=== PATIENT | male | born 1960 | race Caucasian/White ===

== ENCOUNTER 2017-06-30 12:36 | Emergency (ER) | payer SELFPAY ==
[~2017-06-30] VITALS: Ht 172.7 cm; Wt 88.0 kg
[2017-06-30 12:40] VITALS: BP 124/79
[2017-06-30 13:19] LABS: HEMATOCRIT 43.8 % (39.2-51.8); HEMOGLOBIN 13.9 g/dL (13.7-18.0); WHITE BLOOD COUNT 16.6 x10^3/uL (3.4-10)
[2017-06-30 13:30] LABS: BLOOD UREA NITROGEN 16 mg/dL (7-18)
[2017-06-30] MEDS ORDERED: SILVER SULF. CRM 1%, 50GM TP ONE (13:30)
[2017-06-30] MEDS ORDERED: SILVER SULF. CRM 1% , 25GM ONE (13:38)
[2017-06-30 13:41] LABS: ANISOCYTOSIS 1+; POIKILOCYTOSIS 1+; POLYCHROMASIA 1+
[2017-06-30 13:42] LABS: MICROCYTOSIS 1+; OVALOCYTES 1+
== END 2017-06-30 14:26 | disposition home or self-care (01) ==
LOC: ED 14:20
DX: L89.93 Pressure ulcer of unspecified site, stage 3 (principal); G89.29 Other chronic pain; I10 Essential (primary) hypertension; E78.5 Hyperlipidemia, unspecified; I73.9 Peripheral vascular disease, unspecified; J44.9 Chronic obstructive pulmonary disease, unspecified
CPT/HCPCS: 36415; 80048; 82040; 85025; 99284

== ENCOUNTER 2017-07-28 12:43 | Inpatient (IN) | payer MEDICARE, OTHER ==
[~2017-07-28] VITALS: Ht 177.8 cm; Wt 93.6 kg
[2017-07-28] MEDS ORDERED: SODIUM CHLORIDE FLUSH 10ML SYR IVF ONE (13:00)
[2017-07-28] MEDS ORDERED: ALBUTEROL/IPRATROPIUM 2.5MG/0.5MG, 3 ML NPPB SCH (13:00)
[2017-07-28] MEDS ORDERED: ALBUTEROL/IPRATROPIUM 2.5MG/0.5MG, 3 ML ONE ×2 (13:26→13:27)
[2017-07-28] MEDS ORDERED: morphine SULFATE 10 MG/ML, 1ML IVPush ONE (13:30)
[2017-07-28] MEDS ORDERED: MORP-52 PO (13:37)
[2017-07-28] MEDS ORDERED: FURO20TA3 PO (13:37)
[2017-07-28] MEDS ORDERED: ASPI-496 PO (13:37)
[2017-07-28] MEDS ORDERED: OMEP-110 PO (13:37)
[2017-07-28] MEDS ORDERED: ZOLP10TA PO (13:37)
[2017-07-28] MEDS ORDERED: TEST200V IM (13:37)
[2017-07-28] MEDS ORDERED: TRAZ50TA18 PO (13:37)
[2017-07-28] MEDS ORDERED: LEVO75TA5 PO (13:37)
[2017-07-28] MEDS ORDERED: HYDR10TA PO (13:37)
[2017-07-28] MEDS ORDERED: FLUT1DIS5 IH (13:37)
[2017-07-28] MEDS ORDERED: AMPH30TA2 PO (13:37)
[2017-07-28] MEDS ORDERED: LISI40TA PO (13:37)
[2017-07-28] MEDS ORDERED: TIOT18CA INH (13:37)
[2017-07-28] MEDS ORDERED: AMLO10TA2 PO (13:37)
[2017-07-28] MEDS ORDERED: ATOR40TA PO (13:37)
[2017-07-28] MEDS ORDERED: ALBU8.5H8 INH (13:37)
[2017-07-28] MEDS ORDERED: OXYC-307 PO (13:37)
[2017-07-28] MEDS ORDERED: morphine SULFATE 10 MG/ML, 1ML ONE ×2 (13:41→15:01)
[2017-07-28 13:53] LABS: HEMATOCRIT 41.4 % (39.2-51.8); HEMOGLOBIN 13.1 g/dL (13.7-18.0); WHITE BLOOD COUNT 12.4 x10^3/uL (3.4-10)
[2017-07-28 14:08] LABS: ASPARTATE AMINO TRANSFERASE 25 U/L (15-37); BLOOD UREA NITROGEN 17 mg/dL (7-18)
[2017-07-28 14:15] LABS: IS PT STATUS REG ER OR PRE ER? YES
[2017-07-28] MEDS ORDERED: AZITHROMYCIN 500 MG in SODIUM CHLORIDE 0.9% 250 ML IV ONE (14:30)
[2017-07-28] MEDS ORDERED: CEFTRIAXONE PMX 2GM/50ML 50 ML IV ONE (14:30)
[2017-07-28] MEDS ORDERED: CEFTRIAXONE PMX 2GM/50ML 50 ML ONE (14:37)
[2017-07-28] MEDS ORDERED: HYDROmorphone 1 MG/ML, 1ML ONE (15:12)
[2017-07-28] MEDS: HYDROmorphone 2 MG/ML, 1ML IVPush PRN ×2 (15:15→20:29)
[2017-07-28 18:12] VITALS: BP 115/86
[2017-07-28 19:25] VITALS: BP 100/64
[2017-07-28] MEDS ORDERED: ALBUTEROL SULFATE 2.5 MG/3 ML NEB PRN (19:30)
[2017-07-28] MEDS ORDERED: ENALAPRILAT 1.25 MG/ML, 2ML IVPush PRN (19:30)
[2017-07-28] MEDS ORDERED: POLYETHYLENE GLYCOL 17 GM PACKET PO PRN (19:30)
[2017-07-28] MEDS ORDERED: ZOLPIDEM 10MG TABLET PO PRN (19:30)
[2017-07-28] MEDS ORDERED: ONDANSETRON ODT 4 MG PO PRN (19:30)
[2017-07-28] MEDS ORDERED: ACETAMINOPHEN 325 MG TABLET PO PRN (19:30)
[2017-07-28 20:27] LABS: IS PT STATUS REG ER OR PRE ER? NO
[2017-07-28] MEDS: ENOXAPARIN 40 MG/0.4 ML SQ SCH (20:50)
[2017-07-28] MEDS: NICOTINE 7 MG/24 HR PATCH.TD24 TD SCH (20:50)
[2017-07-28] MEDS: OXYcodone/APAP 10/325MG TABLET PO SCH (20:50)
[2017-07-28] MEDS: FUROSEMIDE 40 MG/4 ML IV SCH (20:50)
[2017-07-28] MEDS: PIPERACILLIN/TAZO/PMX 3.375GM 50 ML IV SCH (20:50)
[2017-07-28] MEDS: ATORVASTATIN 40 MG TABLET PO SCH (20:51)
[2017-07-28 21:11] LABS: POTASSIUM,URINE RANDOM 11 mmol/L
[2017-07-29] MEDS: OXYcodone/APAP 10/325MG TABLET PO SCH ×2 (01:04→07:55)
[2017-07-29] MEDS: PIPERACILLIN/TAZO/PMX 3.375GM 50 ML IV SCH ×4 (01:04→19:54)
[2017-07-29 01:06] VITALS: BP 91/58
[2017-07-29 01:50] LABS: IS PT STATUS REG ER OR PRE ER? NO
[2017-07-29 06:15] LABS: BLOOD UREA NITROGEN 17 mg/dL (7-18)
[2017-07-29 06:16] LABS: HEMATOCRIT 39.1 % (39.2-51.8); HEMOGLOBIN 12.3 g/dL (13.7-18.0); WHITE BLOOD COUNT 9.9 x10^3/uL (3.4-10)
[2017-07-29 06:27] LABS: ASPARTATE AMINO TRANSFERASE 21 U/L (15-37)
[2017-07-29 08:25] VITALS: BP 125/77
[2017-07-29] MEDS: FUROSEMIDE 40 MG/4 ML IV SCH ×2 (08:27→17:09)
[2017-07-29] MEDS ORDERED: morphine SULFATE 10 MG/ML, 1ML IVPush ONE (08:30)
[2017-07-29] MEDS ORDERED: HYDROCORTISONE 10 MG TABLET PO SCH (09:00)
[2017-07-29] MEDS: IPRATROPIUM 0.5 MG/2.5 ML INHA NEB SCH ×3 (09:00→20:20)
[2017-07-29] MEDS: OMEPRAZOLE 20 MG CAPSULE.DR PO SCH (10:21)
[2017-07-29] MEDS: AMLODIPINE 5 MG TABLET PO SCH (10:21)
[2017-07-29] MEDS: LISINOPRIL 20 MG TABLET PO SCH (10:21)
[2017-07-29] MEDS: ASPIRIN 81 MG TABLET EC PO SCH (10:21)
[2017-07-29] MEDS: LEVOTHYROXINE 75 MCG TABLET PO SCH (10:22)
[2017-07-29] MEDS: morphine SULFATE ORAL.CONC 20 MG/ML PO SCH ×2 (10:44→19:55)
[2017-07-29] MEDS: FLUTICASONE/VILANTEROL 200-25MCG/INH INH SCH (12:54)
[2017-07-29] MEDS: OXYcodone/APAP 10/325MG TABLET PO PRN ×3 (12:54→20:55)
[2017-07-29] MEDS ORDERED: HEPARIN 5,000 UNITS/ML, 1ML SQ SCH (13:00)
[2017-07-29 14:00] VITALS: BP 102/63
[2017-07-29 19:00] VITALS: BP 92/54
[2017-07-29] MEDS: ENOXAPARIN 40 MG/0.4 ML SQ SCH (19:54)
[2017-07-29] MEDS: ATORVASTATIN 40 MG TABLET PO SCH (19:54)
[2017-07-29] MEDS: NICOTINE 7 MG/24 HR PATCH.TD24 TD SCH (19:55)
[2017-07-29] MEDS: HYDROCORTISONE 20 MG TABLET PO SCH (20:55)
[2017-07-29] MEDS: morphine SULFATE 10 MG/ML, 1ML IVPush PRN (22:36)
[2017-07-30 00:50] VITALS: BP 109/69
[2017-07-30] MEDS: PIPERACILLIN/TAZO/PMX 3.375GM 50 ML IV SCH ×4 (01:23→20:13)
[2017-07-30] MEDS: OXYcodone/APAP 10/325MG TABLET PO PRN ×4 (01:23→20:14)
[2017-07-30] MEDS: IPRATROPIUM 0.5 MG/2.5 ML INHA NEB SCH ×4 (03:00→18:40)
[2017-07-30] MEDS ORDERED: TAMS0.4C2 PO (03:31)
[2017-07-30] MEDS: morphine SULFATE 10 MG/ML, 1ML IVPush PRN ×4 (04:13→23:24)
[2017-07-30 05:55] LABS: WHITE BLOOD COUNT 11.7 x10^3/uL (3.4-10)
[2017-07-30 05:56] LABS: HEMATOCRIT 40.5 % (39.2-51.8); HEMOGLOBIN 12.8 g/dL (13.7-18.0)
[2017-07-30 06:08] LABS: BLOOD UREA NITROGEN 17 mg/dL (7-18)
[2017-07-30 07:37] LABS: HEMATOCRIT 41.2 % (39.2-51.8); HEMOGLOBIN 12.9 g/dL (13.7-18.0); WHITE BLOOD COUNT 10.3 x10^3/uL (3.4-10)
[2017-07-30 08:30] VITALS: BP 123/74
[2017-07-30] MEDS: FLUTICASONE/VILANTEROL 200-25MCG/INH INH SCH (08:31)
[2017-07-30] MEDS: AMLODIPINE 5 MG TABLET PO SCH (08:32)
[2017-07-30] MEDS: HYDROCORTISONE 20 MG TABLET PO SCH ×2 (08:32→16:49)
[2017-07-30] MEDS: FUROSEMIDE 40 MG/4 ML IV SCH ×2 (08:33→16:49)
[2017-07-30] MEDS: LISINOPRIL 20 MG TABLET PO SCH (08:33)
[2017-07-30] MEDS: OMEPRAZOLE 20 MG CAPSULE.DR PO SCH (08:33)
[2017-07-30] MEDS: ASPIRIN 81 MG TABLET EC PO SCH (08:34)
[2017-07-30] MEDS: morphine SULFATE ORAL.CONC 20 MG/ML PO SCH ×2 (09:36→21:41)
[2017-07-30] MEDS: LEVOTHYROXINE 75 MCG TABLET PO SCH (09:40)
[2017-07-30 12:40] VITALS: BP 96/66
[2017-07-30 18:51] VITALS: BP 105/70
[2017-07-30] MEDS: ENOXAPARIN 40 MG/0.4 ML SQ SCH (20:13)
[2017-07-30] MEDS: ATORVASTATIN 40 MG TABLET PO SCH (20:14)
[2017-07-30] MEDS: NICOTINE 7 MG/24 HR PATCH.TD24 TD SCH (20:14)
[2017-07-31] MEDS: OXYcodone/APAP 10/325MG TABLET PO PRN ×3 (01:26→23:23)
[2017-07-31] MEDS: PIPERACILLIN/TAZO/PMX 3.375GM 50 ML IV SCH ×4 (01:26→19:52)
[2017-07-31 01:30] VITALS: BP 112/71
[2017-07-31] MEDS: IPRATROPIUM 0.5 MG/2.5 ML INHA NEB SCH ×3 (03:00→19:43)
[2017-07-31 05:58] LABS: HEMATOCRIT 42.7 % (39.2-51.8); HEMOGLOBIN 13.5 g/dL (13.7-18.0); WHITE BLOOD COUNT 10.2 x10^3/uL (3.4-10)
[2017-07-31] MEDS: morphine SULFATE 10 MG/ML, 1ML IVPush PRN ×3 (06:00→18:56)
[2017-07-31 06:11] LABS: BLOOD UREA NITROGEN 17 mg/dL (7-18)
[2017-07-31 07:28] VITALS: BP 114/74
[2017-07-31] MEDS: NICOTINE 21 MG/24 HR PATCH.TD24 TD SCH (09:00)
[2017-07-31] MEDS: FLUTICASONE/VILANTEROL 200-25MCG/INH INH SCH (09:01)
[2017-07-31] MEDS: morphine SULFATE ORAL.CONC 20 MG/ML PO SCH ×2 (09:01→19:53)
[2017-07-31] MEDS: LISINOPRIL 20 MG TABLET PO SCH (09:02)
[2017-07-31] MEDS: LEVOTHYROXINE 75 MCG TABLET PO SCH (09:02)
[2017-07-31] MEDS: ASPIRIN 81 MG TABLET EC PO SCH (09:02)
[2017-07-31] MEDS: HYDROCORTISONE 20 MG TABLET PO SCH ×2 (09:02→19:52)
[2017-07-31] MEDS: FUROSEMIDE 40 MG/4 ML IV SCH ×2 (09:02→18:15)
[2017-07-31] MEDS: OMEPRAZOLE 20 MG CAPSULE.DR PO SCH (09:03)
[2017-07-31 14:34] VITALS: BP 102/68
[2017-07-31 19:01] VITALS: BP 109/69
[2017-07-31] MEDS: ATORVASTATIN 40 MG TABLET PO SCH (19:52)
[2017-07-31] MEDS: ENOXAPARIN 40 MG/0.4 ML SQ SCH (19:52)
[2017-08-01 01:13] VITALS: BP 119/79
[2017-08-01] MEDS: PIPERACILLIN/TAZO/PMX 3.375GM 50 ML IV SCH ×2 (02:02→08:29)
[2017-08-01] MEDS: IPRATROPIUM 0.5 MG/2.5 ML INHA NEB SCH (03:00)
[2017-08-01] MEDS: OXYcodone/APAP 10/325MG TABLET PO PRN ×2 (03:56→10:52)
[2017-08-01 05:33] LABS: BLOOD UREA NITROGEN 17 mg/dL (7-18); C-REACTIVE PROTEIN, QUANT 0.06 mg/dL (0.02-0.49)
[2017-08-01] MEDS ORDERED: IPRATROPIUM 0.5 MG/2.5 ML INHA NPPB SCH (06:00)
[2017-08-01 06:14] LABS: HEMATOCRIT 41.8 % (39.2-51.8); HEMOGLOBIN 13.2 g/dL (13.7-18.0); WHITE BLOOD COUNT 9.5 x10^3/uL (3.4-10)
[2017-08-01 07:08] LABS: DIFF TOTAL CELLS COUNTED 100 CELL DIFF
[2017-08-01 07:10] LABS: ANISOCYTOSIS 1+; VERIFY COUNTS? YES
[2017-08-01 07:11] LABS: ACANTHOCYTES 1+; ECHINOCYTES 1+; HYPOCHROMIA 1+; OVALOCYTES 1+; POIKILOCYTOSIS 1+
[2017-08-01] MEDS: ASPIRIN 81 MG TABLET EC PO SCH (08:28)
[2017-08-01] MEDS: LEVOTHYROXINE 75 MCG TABLET PO SCH (08:28)
[2017-08-01] MEDS: FUROSEMIDE 40 MG/4 ML IV SCH (08:29)
[2017-08-01] MEDS: HYDROCORTISONE 20 MG TABLET PO SCH (08:29)
[2017-08-01] MEDS: OMEPRAZOLE 20 MG CAPSULE.DR PO SCH (08:29)
[2017-08-01] MEDS: LISINOPRIL 20 MG TABLET PO SCH (08:29)
[2017-08-01] MEDS: FLUTICASONE/VILANTEROL 200-25MCG/INH INH SCH (08:29)
[2017-08-01] MEDS: morphine SULFATE ORAL.CONC 20 MG/ML PO SCH (08:29)
[2017-08-01] MEDS: NICOTINE 21 MG/24 HR PATCH.TD24 TD SCH (08:30)
[2017-08-01] MEDS: morphine SULFATE 10 MG/ML, 1ML IVPush PRN (08:41)
[2017-08-01] MEDS ORDERED: FURO20TA3 PO (08:54)
[2017-08-01] MEDS ORDERED: AMOX1TAB64 PO (08:54)
[2017-08-01 10:01] VITALS: BP 98/68
[2017-08-01] MEDS ORDERED: PNEUMOCOCCAL 23 VACCINE IM-VACC ONE (11:00)
[2017-08-01] MEDS ORDERED: FLU VACC QS2017-18 (36MOS+) UP/PF 0.5 ML IM-VACC ONE (11:30)
== END 2017-08-01 11:55 | disposition home or self-care (01) | DRG 177 ==
LOC: ED 14:40 → 5SO 14:42 → ED 15:23 → DCLOUNGE 08-01 11:23
PROVIDERS: ADMIT Internal Medicine; ATTEND Internal Medicine
DX: J69.0 Pneumonitis due to inhalation of food and vomit (principal); J96.21 Acute and chronic respiratory failure with hypoxia; Z93.0 Tracheostomy status; I27.20 Pulmonary hypertension, unspecified; I50.9 Heart failure, unspecified; E87.1 Hypo-osmolality and hyponatremia; I11.0 Hypertensive heart disease with heart failure; L03.115 Cellulitis of right lower limb; J44.0 Chronic obstructive pulmonary disease with (acute) lower respiratory infection; J44.1 Chronic obstructive pulmonary disease with (acute) exacerbation; L03.116 Cellulitis of left lower limb; R18.8 Other ascites; B19.20 Unspecified viral hepatitis C without hepatic coma; F32.9 Major depressive disorder, single episode, unspecified; M54.9 Dorsalgia, unspecified; E03.9 Hypothyroidism, unspecified; G47.33 Obstructive sleep apnea (adult) (pediatric); F17.210 Nicotine dependence, cigarettes, uncomplicated; G89.29 Other chronic pain; I44.5 Left posterior fascicular block; I73.9 Peripheral vascular disease, unspecified; Z80.0 Family history of malignant neoplasm of digestive organs; Z83.3 Family history of diabetes mellitus; Z91.19 Patient's noncompliance with other medical treatment and regimen; Z92.3 Personal history of irradiation; Z93.1 Gastrostomy status
CPT/HCPCS: 36415; 71010; 71020; 74230; 80048; 80053; 81003; 82436; 83735; 83880; 83930; 83935; 84100; 84133; 84300; 84439; 84443; 84484; 85025; 86140; 87040; 90686; 90732; 93005; 93306; 93970; 94640; 96365; 96375; J0456; J0696; J1170; J1650; J1940; J2543; J7613; J7644; J2270; J7050

== ENCOUNTER → 2017-08-05 | Outpatient (CLI) | payer MEDICARE ==
[~2017-08-05] MED LIST: ALBU8.5H8 INH; AMLO10TA2 PO; AMOX1TAB64 PO; AMPH30TA2 PO; ASPI-496 PO; ATOR40TA PO; FLUT1DIS5 IH; FURO20TA3 PO; HYDR10TA PO; LEVO75TA5 PO; LISI40TA PO; MORP-52 PO; OMEP-110 PO; OXYC-307 PO; TAMS0.4C2 PO; TEST200V IM; TIOT18CA INH; TRAZ50TA18 PO; ZOLP10TA PO
[2017-08-05 12:41] LABS: HEMATOCRIT 45.7 % (39.2-51.8); HEMOGLOBIN 14.3 g/dL (13.7-18.0); WHITE BLOOD COUNT 14.5 x10^3/uL (3.4-10)
[2017-08-05 12:50] LABS: BLOOD UREA NITROGEN 19 mg/dL (7-18)
[2017-08-05 13:01] LABS: ASPARTATE AMINO TRANSFERASE 24 U/L (15-37)
[2017-08-05 13:19] LABS: ANISOCYTOSIS 1+; OVALOCYTES 1+; POIKILOCYTOSIS 1+; POLYCHROMASIA 1+; SPHEROCYTES 1+
[2017-08-05 13:20] LABS: SCHISTOCYTES 1+
[2017-08-05 13:21] LABS: MICROCYTOSIS 1+
[2017-08-05 13:24] LABS: ECHINOCYTES 1+
[2017-08-07 03:07] LABS: TESTOSTERONE FREE DIRECT 5.5 pg/mL (7.2-24.0)
== END | disposition home or self-care (01) ==
LOC: CFH 10:53
PROVIDERS: ATTEND Registered Nurse
DX: E29.1 Testicular hypofunction (principal); F32.9 Major depressive disorder, single episode, unspecified; F90.9 Attention-deficit hyperactivity disorder, unspecified type; F52.21 Male erectile disorder; E55.9 Vitamin D deficiency, unspecified; R79.89 Other specified abnormal findings of blood chemistry
CPT/HCPCS: 36415; 80053; 80061; 82306; 84402; 84403; 84436; 84443; 84481; 85025

== ENCOUNTER 2017-09-19 12:07 | Inpatient (IN) | payer MEDICARE ==
[~2017-09-19] VITALS: Ht 175.3 cm; Wt 85.5 kg
[2017-09-19] MEDS ORDERED: SODIUM CHLORIDE 0.9% 1,000ML IVBOLUS ONE ×4 (12:30→15:30)
[2017-09-19] MEDS ORDERED: ASPIRIN 81 MG TABLET CHEW PO ONE (12:30)
[2017-09-19 12:55] LABS: HEMATOCRIT 46.3 % (39.2-51.8); HEMOGLOBIN 14.9 g/dL (13.7-18.0); WHITE BLOOD COUNT 12.6 x10^3/uL (3.4-10)
[2017-09-19] MEDS ORDERED: ALBUTEROL/IPRATROPIUM 2.5MG/0.5MG, 3 ML NPPB ONE (13:00)
[2017-09-19 13:07] LABS: ASPARTATE AMINO TRANSFERASE 21 U/L (15-37); BLOOD UREA NITROGEN 16 mg/dL (7-18)
[2017-09-19 13:12] LABS: IS PT STATUS REG ER OR PRE ER? YES
[2017-09-19] MEDS ORDERED: ASPIRIN 81 MG TABLET CHEW ONE (13:19)
[2017-09-19] MEDS ORDERED: ALBUTEROL/IPRATROPIUM 2.5MG/0.5MG, 3 ML ONE (13:38)
[2017-09-19] MEDS ORDERED: PIPERACILLIN/TAZO/PMX 3.375GM 50 ML IV ONE (14:00)
[2017-09-19] MEDS ORDERED: PIPERACILLIN/TAZO/PMX 3.375GM 50 ML ONE (14:20)
[2017-09-19] MEDS ORDERED: DOCUSATE 100 MG CAPSULE PO PRN (16:30)
[2017-09-19] MEDS ORDERED: POLYETHYLENE GLYCOL 17 GM PACKET PO PRN (16:30)
[2017-09-19] MEDS ORDERED: TRAZODONE 50MG TABLET PO PRN (16:30)
[2017-09-19] MEDS ORDERED: ALBUTEROL HFA 90 MCG/SPRAY INH PRN (16:30)
[2017-09-19] MEDS ORDERED: VANCOMYCIN PER PHARMACY MC PRN (16:30)
[2017-09-19] MEDS ORDERED: ACETAMINOPHEN 325 MG TABLET PO PRN (16:30)
[2017-09-19] MEDS ORDERED: LABETALOL 5MG/ML, 20ML IVPush PRN (16:30)
[2017-09-19] MEDS ORDERED: HYDROcodone/APAP 5/325 TABLET PO PRN (16:30)
[2017-09-19] MEDS ORDERED: PIPERACILLIN/TAZO/PMX 3.375GM 50 ML IV SCH (16:30)
[2017-09-19] MEDS ORDERED: BISACODYL 10 MG SUPP PR PRN (16:30)
[2017-09-19] MEDS: HEPARIN 5,000 UNITS/ML, 1ML SQ SCH (18:00)
[2017-09-19] MEDS: OXYcodone/APAP 10/325MG TABLET PO SCH ×2 (18:00→23:05)
[2017-09-19] MEDS: NS + 20MEQ KCL 1,000 ML IV SCH (18:01)
[2017-09-19] MEDS: morphine SULFATE 10 MG/ML, 1ML IVPush PRN ×2 (18:01→22:24)
[2017-09-19] MEDS ORDERED: PHARMACOKINETIC MONITORING MC PRN (21:30)
[2017-09-19] MEDS ORDERED: PHARMACOKINETIC CONSULTATION MC ONE (21:30)
[2017-09-19] MEDS: GUAIFENESIN ER 600 MG TABLET PO SCH (22:24)
[2017-09-19] MEDS: ATORVASTATIN 40 MG TABLET PO SCH (22:24)
[2017-09-19] MEDS: PIPERACILLIN/TAZO/PMX 3.375GM 50 ML IV SCH (22:24)
[2017-09-19] MEDS: VANCOMYCIN 1,800 MG in SODIUM CHLORIDE 0.9% 250 ML IV SCH ×2 (22:43→23:05)
[2017-09-19 23:00] VITALS: BP 111/66
[2017-09-20 01:09] VITALS: BP 135/83
[2017-09-20] MEDS: morphine SULFATE 10 MG/ML, 1ML IVPush PRN ×7 (01:25→23:53)
[2017-09-20] MEDS: OXYcodone/APAP 10/325MG TABLET PO SCH (04:23)
[2017-09-20] MEDS: PIPERACILLIN/TAZO/PMX 3.375GM 50 ML IV SCH ×4 (04:23→22:49)
[2017-09-20] MEDS: HEPARIN 5,000 UNITS/ML, 1ML SQ SCH ×3 (04:23→20:49)
[2017-09-20 05:11] LABS: HEMATOCRIT 42.9 % (39.2-51.8); HEMOGLOBIN 13.7 g/dL (13.7-18.0); WHITE BLOOD COUNT 13.1 x10^3/uL (3.4-10)
[2017-09-20 05:23] LABS: BLOOD UREA NITROGEN 20 mg/dL (7-18)
[2017-09-20 07:28] VITALS: BP 115/76
[2017-09-20] MEDS: FLUTICASONE/VILANTEROL 200-25MCG/INH INH SCH (09:00)
[2017-09-20] MEDS: GUAIFENESIN ER 600 MG TABLET PO SCH ×2 (09:00→20:49)
[2017-09-20] MEDS: ASPIRIN 81 MG TABLET EC PO SCH (09:00)
[2017-09-20] MEDS: LISINOPRIL 20 MG TABLET PO SCH (09:00)
[2017-09-20] MEDS ORDERED: LEVOTHYROXINE 75 MCG TABLET PO SCH (09:00)
[2017-09-20] MEDS: IPRATROPIUM 0.5 MG/2.5 ML INHA NPPB SCH ×3 (09:00→21:00)
[2017-09-20] MEDS: HYDROCORTISONE 10 MG TABLET PO SCH (09:00)
[2017-09-20] MEDS: TAMSULOSIN 0.4 MG CAP.ER.24H PO SCH (09:00)
[2017-09-20] MEDS: NS + 20MEQ KCL 1,000 ML IV SCH (10:01)
[2017-09-20] MEDS: OXYcodone/APAP 10/325MG TABLET PO PRN ×2 (11:43→18:26)
[2017-09-20 13:20] VITALS: BP 148/92
[2017-09-20] MEDS: VANCOMYCIN 1,800 MG in SODIUM CHLORIDE 0.9% 250 ML IV SCH (18:10)
[2017-09-20 20:21] VITALS: BP 130/84
[2017-09-20] MEDS: ATORVASTATIN 40 MG TABLET PO SCH (20:49)
[2017-09-21] MEDS: OXYcodone/APAP 10/325MG TABLET PO PRN ×2 (00:59→09:10)
[2017-09-21 01:15] VITALS: BP 131/77
[2017-09-21] MEDS: IPRATROPIUM 0.5 MG/2.5 ML INHA NPPB SCH ×3 (03:00→21:00)
[2017-09-21] MEDS: morphine SULFATE 10 MG/ML, 1ML IVPush PRN ×3 (03:33→19:13)
[2017-09-21] MEDS: HEPARIN 5,000 UNITS/ML, 1ML SQ SCH ×3 (04:29→21:15)
[2017-09-21] MEDS: PIPERACILLIN/TAZO/PMX 3.375GM 50 ML IV SCH ×3 (04:29→17:53)
[2017-09-21 05:30] LABS: HEMATOCRIT 41.4 % (39.2-51.8); HEMOGLOBIN 13.1 g/dL (13.7-18.0); WHITE BLOOD COUNT 8.3 x10^3/uL (3.4-10)
[2017-09-21 05:41] LABS: BLOOD UREA NITROGEN 13 mg/dL (7-18)
[2017-09-21 06:52] VITALS: BP 150/95
[2017-09-21] MEDS: FLUTICASONE/VILANTEROL 200-25MCG/INH INH SCH (09:00)
[2017-09-21] MEDS ORDERED: SPIRONOLACTONE 25 MG TABLET PO SCH (09:00)
[2017-09-21] MEDS: HYDROCORTISONE 10 MG TABLET PO SCH (09:10)
[2017-09-21] MEDS: GUAIFENESIN ER 600 MG TABLET PO SCH (09:11)
[2017-09-21] MEDS: TAMSULOSIN 0.4 MG CAP.ER.24H PO SCH (09:11)
[2017-09-21] MEDS: ASPIRIN 81 MG TABLET EC PO SCH (09:11)
[2017-09-21] MEDS: LISINOPRIL 20 MG TABLET PO SCH (09:11)
[2017-09-21] MEDS: ONDANSETRON 2MG/ML, 2ML IVPush PRN (09:46)
[2017-09-21] MEDS: VANCOMYCIN 1,800 MG in SODIUM CHLORIDE 0.9% 250 ML IV SCH (11:00)
[2017-09-21] MEDS ORDERED: HYDROmorphone 2 MG/ML, 1ML ONE (14:16)
[2017-09-21] MEDS ORDERED: HYDROmorphone 1 MG/ML, 1ML IV ONE (14:30)
[2017-09-21 15:02] VITALS: BP 133/90
[2017-09-21] MEDS: D5%-LACTATED RINGERS 1,000 ML IV SCH (19:30)
[2017-09-21] MEDS: FENTANYL REMOVE PATCH NOTE XX SCH (19:30)
[2017-09-21 19:45] VITALS: BP 158/98
[2017-09-21] MEDS: FAMOTIDINE 20 MG/2 ML IVPush SCH (21:15)
[2017-09-21] MEDS: HYDROmorphone 2 MG/ML, 1ML IVPush PRN ×2 (21:15→21:45)
[2017-09-21] MEDS: FENTANYL 25 MCG PATCH TD SCH (21:16)
[2017-09-22] MEDS: PIPERACILLIN/TAZO/PMX 3.375GM 50 ML IV SCH ×4 (00:34→19:48)
[2017-09-22] MEDS: morphine SULFATE 10 MG/ML, 1ML IVPush PRN ×4 (00:34→23:56)
[2017-09-22] MEDS: HYDROmorphone 2 MG/ML, 1ML IVPush PRN ×6 (01:11→20:06)
[2017-09-22 01:16] VITALS: BP 156/91
[2017-09-22] MEDS: VANCOMYCIN 1,800 MG in SODIUM CHLORIDE 0.9% 250 ML IV SCH ×2 (04:11→23:08)
[2017-09-22] MEDS: IPRATROPIUM 0.5 MG/2.5 ML INHA NPPB SCH ×2 (05:35→20:16)
[2017-09-22 05:50] LABS: BLOOD UREA NITROGEN 9 mg/dL (7-18)
[2017-09-22] MEDS: HEPARIN 5,000 UNITS/ML, 1ML SQ SCH ×3 (06:05→20:07)
[2017-09-22 07:31] VITALS: BP 156/90
[2017-09-22] MEDS: FLUTICASONE/VILANTEROL 200-25MCG/INH INH SCH (08:47)
[2017-09-22] MEDS: FAMOTIDINE 20 MG/2 ML IVPush SCH ×2 (08:47→20:07)
[2017-09-22] MEDS: D5%-LACTATED RINGERS 1,000 ML IV SCH ×3 (08:47→23:11)
[2017-09-22 14:33] VITALS: BP 149/90
[2017-09-22 19:30] VITALS: BP 185/113
[2017-09-23 01:29] VITALS: BP 153/87
[2017-09-23] MEDS: PIPERACILLIN/TAZO/PMX 3.375GM 50 ML IV SCH ×4 (01:42→20:30)
[2017-09-23] MEDS: HYDROmorphone 2 MG/ML, 1ML IVPush PRN ×4 (01:42→22:12)
[2017-09-23] MEDS: HEPARIN 5,000 UNITS/ML, 1ML SQ SCH ×3 (04:30→20:24)
[2017-09-23] MEDS: morphine SULFATE 10 MG/ML, 1ML IVPush PRN ×3 (06:10→19:39)
[2017-09-23 07:12] VITALS: BP 165/96
[2017-09-23] MEDS: IPRATROPIUM 0.5 MG/2.5 ML INHA NPPB SCH ×2 (08:11→20:34)
[2017-09-23] MEDS: FLUTICASONE/VILANTEROL 200-25MCG/INH INH SCH (08:33)
[2017-09-23] MEDS: FAMOTIDINE 20 MG/2 ML IVPush SCH ×2 (08:36→20:30)
[2017-09-23 13:10] VITALS: BP 164/95
[2017-09-23] MEDS: VANCOMYCIN 1,800 MG in SODIUM CHLORIDE 0.9% 250 ML IV SCH (17:33)
[2017-09-23 19:43] VITALS: BP 155/98
[2017-09-24 01:06] VITALS: BP 147/81
[2017-09-24] MEDS: PIPERACILLIN/TAZO/PMX 3.375GM 50 ML IV SCH ×3 (02:43→15:00)
[2017-09-24] MEDS: HEPARIN 5,000 UNITS/ML, 1ML SQ SCH ×3 (02:45→20:30)
[2017-09-24] MEDS: morphine SULFATE 10 MG/ML, 1ML IVPush PRN (03:50)
[2017-09-24] MEDS ORDERED: FUROSEMIDE 40 MG/4 ML IV ONE (06:30)
[2017-09-24] MEDS ORDERED: HYDROmorphone 2 MG/ML, 1ML IVPush PRN (07:30)
[2017-09-24 07:40] VITALS: BP 162/88
[2017-09-24] MEDS: IPRATROPIUM 0.5 MG/2.5 ML INHA NPPB SCH ×2 (08:08→21:00)
[2017-09-24] MEDS: FAMOTIDINE 20 MG/2 ML IVPush SCH ×2 (09:35→22:13)
[2017-09-24] MEDS: FLUTICASONE/VILANTEROL 200-25MCG/INH INH SCH (09:35)
[2017-09-24] MEDS ORDERED: OXYcodone IR 5MG TABLET ONE (09:46)
[2017-09-24] MEDS: OXYcodone IR 30 MG TABLET GT PRN ×2 (10:02→22:12)
[2017-09-24 13:29] VITALS: BP 118/81
[2017-09-24] MEDS: VANCOMYCIN 1,800 MG in SODIUM CHLORIDE 0.9% 250 ML IV SCH (15:13)
[2017-09-24 18:33] VITALS: BP 123/84
[2017-09-24] MEDS: FENTANYL REMOVE PATCH NOTE XX SCH (19:30)
[2017-09-24] MEDS: FENTANYL 25 MCG PATCH TD SCH (19:30)
[2017-09-24] MEDS ORDERED: OXYcodone ORAL.CONC 20 MG/ML ONE (22:07)
[2017-09-24] MEDS: FLUCONAZOLE 400 MG/200 ML 200 ML IV SCH (23:01)
[2017-09-25] MEDS: PIPERACILLIN/TAZO/PMX 3.375GM 50 ML IV SCH ×3 (01:34→13:00)
[2017-09-25] MEDS: HEPARIN 5,000 UNITS/ML, 1ML SQ SCH ×3 (02:19→21:10)
[2017-09-25 03:00] VITALS: BP 136/88
[2017-09-25 07:08] VITALS: BP 108/70
[2017-09-25] MEDS: VANCOMYCIN 1,800 MG in SODIUM CHLORIDE 0.9% 250 ML IV SCH (09:09)
[2017-09-25] MEDS: FLUTICASONE/VILANTEROL 200-25MCG/INH INH SCH (09:09)
[2017-09-25] MEDS: FAMOTIDINE 20 MG/2 ML IVPush SCH ×2 (09:09→21:09)
[2017-09-25] MEDS: IPRATROPIUM 0.5 MG/2.5 ML INHA NPPB SCH (10:05)
[2017-09-25] MEDS ORDERED: OXYcodone IR 5MG TABLET ONE (12:13)
[2017-09-25] MEDS ORDERED: LIDOCAINE 1%, 20ML ONE (14:41)
[2017-09-25 19:30] VITALS: BP 132/86
[2017-09-25] MEDS: PIPERACILLIN/TAZO 3.375 GM in SODIUM CHLORIDE 0.9% 50 ML IV SCH (21:09)
[2017-09-25] MEDS ORDERED: OXYcodone ORAL.CONC 20 MG/ML ONE (21:14)
[2017-09-25] MEDS: OXYcodone IR 30 MG TABLET GT PRN (21:20)
[2017-09-25] MEDS ORDERED: ALBUTEROL/IPRATROPIUM 2.5MG/0.5MG, 3 ML NPPB PRN (21:30)
[2017-09-25] MEDS: FLUCONAZOLE 400 MG/200 ML 200 ML IV SCH (22:26)
[2017-09-26 01:37] VITALS: BP 115/70
[2017-09-26] MEDS: PIPERACILLIN/TAZO 3.375 GM in SODIUM CHLORIDE 0.9% 50 ML IV SCH ×4 (02:29→20:38)
[2017-09-26] MEDS: VANCOMYCIN 1,800 MG in SODIUM CHLORIDE 0.9% 250 ML IV SCH ×2 (03:08→21:44)
[2017-09-26] MEDS ORDERED: OXYcodone ORAL.CONC 20 MG/ML ONE (04:01)
[2017-09-26] MEDS: OXYcodone IR 30 MG TABLET GT PRN (04:38)
[2017-09-26] MEDS: HEPARIN 5,000 UNITS/ML, 1ML SQ SCH ×3 (04:43→20:43)
[2017-09-26 07:15] VITALS: BP 115/74
[2017-09-26] MEDS: FLUTICASONE/VILANTEROL 200-25MCG/INH INH SCH (08:09)
[2017-09-26] MEDS: FAMOTIDINE 20 MG/2 ML IVPush SCH ×2 (08:10→20:43)
[2017-09-26] MEDS: ALBUTEROL/IPRATROPIUM 2.5MG/0.5MG, 3 ML NPPB SCH ×2 (09:25→20:45)
[2017-09-26] MEDS: morphine SULFATE 15 MG TAB.IR PO PRN ×2 (11:07→20:24)
[2017-09-26 14:05] VITALS: BP 151/81
[2017-09-26 18:46] VITALS: BP 151/93
[2017-09-27 01:09] VITALS: BP 173/99
[2017-09-27] MEDS: FLUCONAZOLE 400 MG/200 ML 200 ML IV SCH (01:34)
[2017-09-27] MEDS: morphine SULFATE 15 MG TAB.IR PO PRN ×3 (01:34→23:26)
[2017-09-27] MEDS: PIPERACILLIN/TAZO 3.375 GM in SODIUM CHLORIDE 0.9% 50 ML IV SCH ×4 (05:24→23:26)
[2017-09-27] MEDS: HEPARIN 5,000 UNITS/ML, 1ML SQ SCH ×3 (05:29→20:28)
[2017-09-27 06:09] LABS: HEMATOCRIT 43.9 % (39.2-51.8); HEMOGLOBIN 13.7 g/dL (13.7-18.0); WHITE BLOOD COUNT 10.2 x10^3/uL (3.4-10)
[2017-09-27 06:11] LABS: BLOOD UREA NITROGEN 7 mg/dL (7-18)
[2017-09-27 07:03] VITALS: BP 154/90
[2017-09-27] MEDS: ALBUTEROL/IPRATROPIUM 2.5MG/0.5MG, 3 ML NPPB SCH ×2 (09:15→20:00)
[2017-09-27] MEDS: FAMOTIDINE 20 MG/2 ML IVPush SCH ×2 (09:50→20:28)
[2017-09-27] MEDS: FLUTICASONE/VILANTEROL 200-25MCG/INH INH SCH (09:50)
[2017-09-27 13:30] VITALS: BP 164/94
[2017-09-27] MEDS: ONDANSETRON 2MG/ML, 2ML IVPush PRN (14:43)
[2017-09-27] MEDS: VANCOMYCIN 1,800 MG in SODIUM CHLORIDE 0.9% 250 ML IV SCH (15:19)
[2017-09-27 21:03] VITALS: BP 146/89
[2017-09-28] MEDS: FLUCONAZOLE 400 MG/200 ML 200 ML IV SCH (01:18)
[2017-09-28 02:58] VITALS: BP 136/69
[2017-09-28] MEDS: HEPARIN 5,000 UNITS/ML, 1ML SQ SCH ×3 (05:29→20:59)
[2017-09-28] MEDS: PIPERACILLIN/TAZO 3.375 GM in SODIUM CHLORIDE 0.9% 50 ML IV SCH ×4 (05:29→23:17)
[2017-09-28] MEDS: morphine SULFATE 15 MG TAB.IR PO PRN ×3 (05:44→23:17)
[2017-09-28 06:53] VITALS: BP 164/92
[2017-09-28] MEDS: ALBUTEROL/IPRATROPIUM 2.5MG/0.5MG, 3 ML NPPB SCH ×2 (08:55→20:50)
[2017-09-28] MEDS: FAMOTIDINE 20 MG/2 ML IVPush SCH ×2 (09:45→20:59)
[2017-09-28] MEDS: FLUTICASONE/VILANTEROL 200-25MCG/INH INH SCH (09:45)
[2017-09-28] MEDS: VANCOMYCIN 1,800 MG in SODIUM CHLORIDE 0.9% 250 ML IV SCH (09:46)
[2017-09-28 12:43] VITALS: BP 159/105
[2017-09-28 13:30] VITALS: BP 178/87
[2017-09-28] MEDS: ONDANSETRON 2MG/ML, 2ML IVPush PRN (17:21)
[2017-09-28 19:02] VITALS: BP 132/58
[2017-09-29] MEDS: FLUCONAZOLE 400 MG/200 ML 200 ML IV SCH (01:19)
[2017-09-29 02:45] VITALS: BP 165/89
[2017-09-29] MEDS: PIPERACILLIN/TAZO 3.375 GM in SODIUM CHLORIDE 0.9% 50 ML IV SCH ×4 (05:16→23:43)
[2017-09-29] MEDS: HEPARIN 5,000 UNITS/ML, 1ML SQ SCH ×3 (05:28→21:30)
[2017-09-29] MEDS: ALBUTEROL/IPRATROPIUM 2.5MG/0.5MG, 3 ML NPPB SCH ×2 (06:31→20:00)
[2017-09-29 07:15] VITALS: BP 146/85
[2017-09-29] MEDS: FLUTICASONE/VILANTEROL 200-25MCG/INH INH SCH (08:36)
[2017-09-29] MEDS: FAMOTIDINE 20 MG/2 ML IVPush SCH ×2 (08:36→21:29)
[2017-09-29 14:45] VITALS: BP 146/86
[2017-09-29] MEDS: morphine SULFATE 15 MG TAB.IR PO PRN ×2 (15:11→21:53)
[2017-09-29 20:00] VITALS: BP 160/91
[2017-09-29] MEDS ORDERED: VANCOMYCIN 1,500 MG in SODIUM CHLORIDE 0.9% 250 ML IV SCH (21:00)
[2017-09-30 02:21] VITALS: BP 154/77
[2017-09-30] MEDS: FLUCONAZOLE 400 MG/200 ML 200 ML IV SCH (02:35)
[2017-09-30] MEDS: PIPERACILLIN/TAZO 3.375 GM in SODIUM CHLORIDE 0.9% 50 ML IV SCH ×2 (05:58→11:43)
[2017-09-30] MEDS: HEPARIN 5,000 UNITS/ML, 1ML SQ SCH ×2 (05:58→13:30)
[2017-09-30] MEDS ORDERED: FLUC200T4 PO (06:01)
[2017-09-30] MEDS ORDERED: AMOX1TAB64 PO (06:01)
[2017-09-30] MEDS: FLUTICASONE/VILANTEROL 200-25MCG/INH INH SCH (07:38)
[2017-09-30] MEDS: FAMOTIDINE 20 MG/2 ML IVPush SCH (07:38)
[2017-09-30 07:41] VITALS: BP 177/90
[2017-09-30] MEDS: ONDANSETRON 2MG/ML, 2ML IVPush PRN (08:01)
[2017-09-30] MEDS: morphine SULFATE 15 MG TAB.IR PO PRN (08:01)
[2017-09-30] MEDS: ALBUTEROL/IPRATROPIUM 2.5MG/0.5MG, 3 ML NPPB SCH (10:40)
[2017-09-30 12:46] VITALS: BP 154/84
== END 2017-09-30 15:30 | disposition home health service (06) | DRG 177 ==
LOC: ED 13:28 → EDIP 15:55 → 3NE 20:42 → DCLOUNGE 09-30 14:57
PROVIDERS: ADMIT Internal Medicine; ATTEND Internal Medicine
PROC: 0DH63UZ Insertion of Feeding Device into Stomach, Percutaneous Approach (ICD-10-PCS; principal; 2017-09-23)
PROC: 3E0G76Z Introduction of Nutritional Substance into Upper GI, Via Natural or Artificial Opening (ICD-10-PCS; 2017-09-23)
DX: J69.0 Pneumonitis due to inhalation of food and vomit (principal); N17.0 Acute kidney failure with tubular necrosis; J96.21 Acute and chronic respiratory failure with hypoxia; R13.10 Dysphagia, unspecified; E87.1 Hypo-osmolality and hyponatremia; E44.1 Mild protein-calorie malnutrition; I50.9 Heart failure, unspecified; I11.0 Hypertensive heart disease with heart failure; I95.2 Hypotension due to drugs; R45.851 Suicidal ideations; N28.1 Cyst of kidney, acquired; Z99.81 Dependence on supplemental oxygen; G47.33 Obstructive sleep apnea (adult) (pediatric); E78.5 Hyperlipidemia, unspecified; G89.29 Other chronic pain; I73.9 Peripheral vascular disease, unspecified; Z68.27 Body mass index [BMI] 27.0-27.9, adult; J44.9 Chronic obstructive pulmonary disease, unspecified; Z51.5 Encounter for palliative care; Z66 Do not resuscitate; Z79.82 Long term (current) use of aspirin; Z79.899 Other long term (current) drug therapy; Z83.3 Family history of diabetes mellitus; Z85.819 Personal history of malignant neoplasm of unspecified site of lip, oral cavity, and pharynx; Z87.891 Personal history of nicotine dependence; Z91.19 Patient's noncompliance with other medical treatment and regimen; Z92.3 Personal history of irradiation; Z72.89 Other problems related to lifestyle; Z90.89 Acquired absence of other organs; Z93.1 Gastrostomy status
CPT/HCPCS: 32555; 36415; 49465; 71010; 71020; 74230; 76000; 80048; 80053; 80202; 83605; 83735; 83880; 84145; 84484; 85025; 87040; 87070; 87205; 87324; 93005; 94640; 96360; J1170; J1450; J1644; J1940; J2405; J2543; J3370; J3480; J3490; J7620; J7644; 92523-GN; J2270; J7030; J7050; J7121; J7512; S0028